=== PATIENT | female | born 1985 | race Caucasian/White ===

== ENCOUNTER 2016-11-20 17:00 | Outpatient (CLI) | payer OTHER | END 2016-11-20 18:37 | disposition home or self-care (01) | LOC: LDOP 17:00 | PROVIDERS: ATTEND Obstetrics & Gynecology | DX: O36.8190 Decreased fetal movements, unspecified trimester, not applicable or unspecified (principal); Z3A.00 Weeks of gestation of pregnancy not specified | CPT/HCPCS: 59025; 99201; G0463 ==

== ENCOUNTER 2016-12-01 14:04 | Outpatient (CLI) | payer OTHER ==
[~2016-12-01] VITALS: Ht 167.6 cm; Wt 87.3 kg
[2016-12-01 14:13] VITALS: BP 131/87
[2016-12-01 14:37] LABS: HEMATOCRIT 38.4 % (34.6-47.8); HEMOGLOBIN 12.9 g/dL (11.7-16.4); WHITE BLOOD COUNT 10.6 x10^3/uL (3.4-10)
[2016-12-01 14:44] LABS: ASPARTATE AMINO TRANSFERASE 16 U/L (15-37); BLOOD UREA NITROGEN 4 mg/dL (7-18)
== END 2016-12-01 16:55 | disposition home or self-care (01) ==
LOC: LDOP 14:04
PROVIDERS: ATTEND Obstetrics & Gynecology
DX: O13.3 Gestational [pregnancy-induced] hypertension without significant proteinuria, third trimester (principal); O99.343 Other mental disorders complicating pregnancy, third trimester; F32.9 Major depressive disorder, single episode, unspecified; Z3A.34 34 weeks gestation of pregnancy
CPT/HCPCS: 36415; 59025; 80053; 81001; 82570; 84156; 84550; 85025; 99211; G0463

== ENCOUNTER 2017-01-02 15:13 | Inpatient (IN) | payer OTHER ==
[~2017-01-02] VITALS: Ht 167.6 cm; Wt 85.5 kg
[2017-01-02 15:35] VITALS: BP 143/96
[2017-01-02] MEDS ORDERED: VERA80TA2 PO (15:52)
[2017-01-02] MEDS ORDERED: PROP1TAB8 PO (15:54)
[2017-01-02] MEDS ORDERED: PREN-3 PO (15:55)
[2017-01-02 16:13] LABS: HEMOGLOBIN 13.6 g/dL (11.7-16.4); WHITE BLOOD COUNT 10.5 x10^3/uL (3.4-10)
[2017-01-02 16:21] LABS: ASPARTATE AMINO TRANSFERASE 17 U/L (15-37); BLOOD UREA NITROGEN 7 mg/dL (7-18)
[2017-01-02 16:24] LABS: LACTATE DEHYDROGENASE 198 U/L (84-246)
[2017-01-02] MEDS ORDERED: OXYTOCIN 30U/ 0.9% NaCL 500ML 500 ML IV ONE (16:58)
[2017-01-02] MEDS ORDERED: D5%-LACTATED RINGERS 1,000 ML IV SCH (16:58)
[2017-01-02] MEDS ORDERED: SODIUM CHLORIDE FLUSH 10ML SYR IVF PRN (17:00)
[2017-01-02] MEDS ORDERED: FENTANYL PF 100 MCG/2ML IV PRN (17:00)
[2017-01-02] MEDS ORDERED: CALCIUM CARBONATE 500 MG TAB.CHEW PO PRN (17:00)
[2017-01-02] MEDS ORDERED: FENTANYL PF 100 MCG/2ML IVPush PRN (17:00)
[2017-01-02] MEDS ORDERED: ONDANSETRON 2MG/ML, 2ML IVPush PRN (17:00)
[2017-01-02] MEDS ORDERED: OXYTOCIN 30U/ 0.9% NaCL 500ML 0 ML ONE ×2 (17:11→18:06)
[2017-01-02] MEDS ORDERED: NEWBORN KIT ONE (18:03)
[2017-01-02] MEDS ORDERED: MISOPROSTOL 200 MCG TABLET ONE (18:06)
[2017-01-02] MEDS ORDERED: LIDOCAINE 1%, 20ML ONE (18:06)
[2017-01-02] MEDS: LACTATED RINGERS 1,000 ML IV SCH (18:14)
[2017-01-02 18:41] VITALS: BP 126/85
[2017-01-02] MEDS ORDERED: FENTANYL PF 100 MCG/2ML ONE (19:45)
[2017-01-02] MEDS ORDERED: VERAPAMIL 80MG TABLET PO SCH (21:30)
[2017-01-02] MEDS ORDERED: PROPRANOLOL 20 MG TABLET PO SCH (21:30)
[2017-01-02] MEDS: VERAPAMIL ER 180MG TABLET.ER HOMEMEDPO SCH (21:39)
[2017-01-02] MEDS: PROPRANOLOL 20 MG TABLET HOMEMEDPO SCH (21:39)
[2017-01-02] MEDS ORDERED: DIPHENHYDRAMINE 25 MG CAPSULE PO PRN (23:30)
[2017-01-02] MEDS ORDERED: ZOLPIDEM 5MG TABLET PO PRN (23:30)
[2017-01-03] MEDS: LACTATED RINGERS 1,000 ML IV SCH ×3 (01:00→11:24)
[2017-01-03] MEDS ORDERED: OXYTOCIN 30U/ 0.9% NaCL 500ML 500 ML ONE (06:41)
[2017-01-03] MEDS ORDERED: VERAPAMIL ER 180MG TABLET.ER HOMEMEDPO SCH (09:00)
[2017-01-03] MEDS: PROPRANOLOL 20 MG TABLET HOMEMEDPO SCH ×2 (10:00→21:00)
[2017-01-03] MEDS ORDERED: FENTANYL PF 100 MCG/2ML ONE (11:08)
[2017-01-03] MEDS ORDERED: BUPIVACAINE 0.25% ONE (11:08)
[2017-01-03] MEDS ORDERED: FENTANYL/BUPIV./NS/PF 250 ML EPIDCONT ONE (11:08)
[2017-01-03] MEDS ORDERED: LIDOCAINE/PF 1.5%-EPI 1:200K, 30ML ONE (11:12)
[2017-01-03] MEDS ORDERED: ONDANSETRON 2MG/ML, 2ML ONE (12:46)
[2017-01-03] MEDS ORDERED: OXYTOCIN 30U/ 0.9% NaCL 500ML 500 ML IV SCH ×2 (17:39)
[2017-01-03] MEDS ORDERED: ACETAMINOPHEN 325 MG TABLET PO PRN (18:00)
[2017-01-03] MEDS ORDERED: MISOPROSTOL 200 MCG TABLET PR PRN (18:00)
[2017-01-03] MEDS ORDERED: HYDROcodone/APAP 5/325 TABLET PO PRN ×2 (18:00)
[2017-01-03] MEDS ORDERED: ONDANSETRON 2MG/ML, 2ML IV PRN (18:00)
[2017-01-03] MEDS ORDERED: CALCIUM CARBONATE 500 MG TAB.CHEW PO PRN (18:00)
[2017-01-03 19:30] VITALS: BP 136/97
[2017-01-03] MEDS: IBUPROFEN 600 MG TABLET PO PRN (19:49)
[2017-01-03 20:40] VITALS: BP 134/94
[2017-01-03 21:30] VITALS: BP 124/78
[2017-01-03] MEDS: VERAPAMIL ER 180MG TABLET.ER HOMEMEDPO SCH (21:30)
[2017-01-04] VITALS: BP 122/81
[2017-01-04] MEDS: IBUPROFEN 600 MG TABLET PO PRN ×4 (01:44→21:51)
[2017-01-04 01:57] LABS: HEMATOCRIT 36.5 % (34.6-47.8); HEMOGLOBIN 12.1 g/dL (11.7-16.4); WHITE BLOOD COUNT 20.3 x10^3/uL (3.4-10)
[2017-01-04 02:39] LABS: DIFF TOTAL CELLS COUNTED 100 CELL DIFF
[2017-01-04 02:40] LABS: VERIFY COUNTS? YES
[2017-01-04 03:59] VITALS: BP 108/75
[2017-01-04 07:37] VITALS: BP 107/73
[2017-01-04] MEDS: PRENATAL VIT/IRON/FA 1 EACH TABLET PO SCH (08:15)
[2017-01-04] MEDS: DOCUSATE 100 MG CAPSULE PO PRN (08:15)
[2017-01-04] MEDS: PROPRANOLOL 20 MG TABLET HOMEMEDPO SCH ×2 (09:00→21:30)
[2017-01-04 11:46] VITALS: BP 112/81
[2017-01-04 16:40] VITALS: BP 109/76
[2017-01-04 21:00] VITALS: BP 125/86
[2017-01-04] MEDS: VERAPAMIL ER 180MG TABLET.ER HOMEMEDPO SCH (21:30)
[2017-01-05] MEDS ORDERED: MEASLES,MUMPS&RUBELLA VACC/PF 0.5 ML SQ-VACC ONE ×2 (05:17→05:30)
[2017-01-05] MEDS: IBUPROFEN 600 MG TABLET PO PRN (07:49)
[2017-01-05] MEDS: PRENATAL VIT/IRON/FA 1 EACH TABLET PO SCH (07:49)
[2017-01-05] MEDS: DOCUSATE 100 MG CAPSULE PO PRN (07:49)
[2017-01-05 08:00] VITALS: BP 107/71
[2017-01-05] MEDS: PROPRANOLOL 20 MG TABLET HOMEMEDPO SCH (09:30)
[2017-01-05] MEDS ORDERED: DOCU-131 PO (11:13)
[2017-01-05] MEDS ORDERED: IBUP-1222 PO (11:13)
== END 2017-01-05 12:10 | disposition home or self-care (01) | DRG 775 ==
LOC: LDOP 15:13 → LDIP 16:58 → 2NW 01-03 19:30
PROVIDERS: ADMIT Obstetrics & Gynecology; ATTEND Obstetrics & Gynecology
PROC: 10E0XZZ Delivery of Products of Conception, External Approach (ICD-10-PCS; principal; 2017-01-04)
PROC: 0KQM0ZZ Repair Perineum Muscle, Open Approach (ICD-10-PCS; 2017-01-04)
PROC: 10907ZC Drainage of Amniotic Fluid, Therapeutic from Products of Conception, Via Natural or Artificial Opening (ICD-10-PCS; 2017-01-04)
PROC: 0U7C7ZZ Dilation of Cervix, Via Natural or Artificial Opening (ICD-10-PCS; 2017-01-04)
PROC: 3E033VJ Introduction of Other Hormone into Peripheral Vein, Percutaneous Approach (ICD-10-PCS; 2017-01-04)
PROC: 3E0R3BZ Introduction of Anesthetic Agent into Spinal Canal, Percutaneous Approach (ICD-10-PCS; 2017-01-04)
PROC: 00HU33Z Insertion of Infusion Device into Spinal Canal, Percutaneous Approach (ICD-10-PCS; 2017-01-04)
DX: O14.94 Unspecified pre-eclampsia, complicating childbirth (principal); O99.354 Diseases of the nervous system complicating childbirth; Z37.0 Single live birth; O70.1 Second degree perineal laceration during delivery; G43.909 Migraine, unspecified, not intractable, without status migrainosus; Z3A.39 39 weeks gestation of pregnancy; Z80.41 Family history of malignant neoplasm of ovary; Z82.3 Family history of stroke
CPT/HCPCS: 36415; 80053; 81003; 82570; 83615; 84156; 84550; 85025; 86850; 86900; J2405; J3010; J3490; J2590; J7120

== ENCOUNTER 2018-06-09 13:50 | Emergency (ER) | payer OTHER ==
[~2018-06-09] VITALS: Ht 165.1 cm; Wt 78.4 kg
[~2018-06-09 13:50] MED LIST: DOCU-131 PO; IBUP-1222 PO; PREN-3 PO; PROP1TAB8 PO; VERA80TA2 PO
[2018-06-09 13:56] VITALS: BP 135/78
[2018-06-09 14:37] LABS: BASOPHILS # (AUTO) 0.04 x10^3/uL (0-0.1); BASOPHILS % (AUTO) 0 % (0-1); EOSINOPHILS # (AUTO) 0.13 x10^3/uL (0-0.4); EOSINOPHILS % (AUTO) 1 % (1-7); LYMPHOCYTES # (AUTO) 3.01 x10^3/uL (1-3.4); LYMPHOCYTES % (AUTO) 33 % (22-44); MD NO; MEAN CORPUSCULAR HEMOGLOBIN 29.6 pg (27.0-34.8); MEAN CORPUSCULAR HGB CONC 33.2 g/dL (32.4-35.8); MEAN CORPUSCULAR VOLUME 89.1 fL (80-100); MEAN PLATELET VOLUME 7.3 fL (7.4-10.4); MONOCYTES # (AUTO) 0.41 x10^3/uL (0.2-0.8); MONOCYTES % (AUTO) 5 % (2-9); NEUTROPHILS # (AUTO) 5.57 x10^3/uL (1.8-6.8); NEUTROPHILS % (AUTO) 61 % (42-75); PLATELET COUNT 348 x10^3/uL (130-400); RED BLOOD COUNT 4.71 x10^6/uL (3.82-5.3); RED CELL DISTRIBUTION WIDTH 14.2 % (9.6-15.2)
[2018-06-09 14:47] LABS: MICROSCOPIC AUTO
[2018-06-09 14:49] LABS: CULTURE INDICATED? NO
--- NOTE | 2018-06-09 15:19 | NUR ---
PT TO US
--- NOTE | 2018-06-09 16:07 | NUR ---
MD AT BEDSIDE. PT UP FOR DC, AWAITING PAPERWORK
== END 2018-06-09 16:19 | disposition home or self-care (01) ==
LOC: ED 14:19
DX: O20.0 Threatened abortion (principal)
CPT/HCPCS: 36415; 76801; 81001; 84702; 85025; 86901; 99284